=== PATIENT | male | born 1990 | race Caucasian/White ===

== ENCOUNTER 2019-08-20 09:33 | Emergency (ER) | payer SELFPAY ==
[~2019-08-20] VITALS: Ht 180 cm; Wt 57.7 kg
--- NOTE | 2019-08-20 09:57 | ED GI ---
General Chief Complaint: Abdominal/GI Problems Stated Complaint: VOMITING Source of Information: Patient Exam Limitations: No Limitations History of Present Illness Date Seen by Provider: Aug 20, 2019 Time Seen by Provider: 09:55 Initial Comments This is a 29-year-old male presents with persistent vomiting after eating bad food 5 days ago on Wednesday. The patient has had no associated hematemesis, diarrhea, black or tarry stools, dysuria, frequency, flank pain, fever or chill, associated headache stiff neck or photophobia, palpitations, shortness of breath, or productive cough. Patient relates that he uses marijuana but does not believe that this is cyclical vomiting from same. Past medical history is otherwise unremarkable. Allergies and Home Medications Allergies Coded Allergies: No Known Drug Allergies (Unverified , 08/20/19) Patient Home Medication List Home Medication List Reviewed: Yes Review of Systems Review of Systems Constitutional: No chills, No fever EENTM: No Symptoms Reported Respiratory: No Symptoms Reported; Denies Cough Cardiovascular: No Symptoms Reported; Denies Chest Pain Gastrointestinal: See HPI, Abdominal Pain; Denies Diarrhea; Nausea, Vomiting Genitourinary: No Symptoms Reported Musculoskeletal: no symptoms reported (diffuse greatest in the epigastric area after vomiting) Skin: no symptoms reported; No rash Psychiatric/Neurological: No Symptoms Reported Endocrine: No Symptoms Reported Hematologic/Lymphatic: No Symptoms Reported Past Hesxzes-Kvggum-Vognuq Hx Past Med/Social Hx: Reviewed Nursing Past Med/Soc Hx Physical Exam Vital Signs Vital Signs - First Documented 08/20/19 09:44 Temp 36.3 Pulse 82 Resp 16 B/P (MAP) 123/70 (87) Pulse Ox 98 O2 Delivery Room Air Capillary Refill : Height/Weight/BMI Height: '" Weight: lbs. oz. kg; BMI Method: General Appearance: mild distress, thin Neck: full range of motion, supple Respiratory: lungs clear, normal breath sounds Cardiovascular: regular rate, rhythm, no murmur Gastrointestinal: soft, tenderness Extremities: normal range of motion, non-tender, normal inspection Back: normal inspection Neurologic/Psychiatric: no motor/sensory deficits, alert, normal mood/affect, oriented x 3 Skin: normal color, warm/dry; No rash Progress/Results/Core Measures Results/Orders Lab Results Laboratory Tests Test 08/20/19 10:06 08/20/19 11:23 Range/Units White Blood Count 12.5 H 4.3-11.0 10^3/uL Red Blood Count 5.96 H 4.35-5.85 10^6/uL Hemoglobin 17.8 H 13.3-17.7 G/DL Hematocrit 52 40-54 % Mean Corpuscular Volume 87 80-99 FL Mean Corpuscular Hemoglobin 30 25-34 PG Mean Corpuscular Hemoglobin Concent 34 32-36 G/DL Red Cell Distribution Width 12.6 10.0-14.5 % Platelet Count 340 130-400 10^3/uL Mean Platelet Volume 9.9 7.4-10.4 FL Neutrophils (%) (Auto) 76 H 42-75 % Lymphocytes (%) (Auto) 13 12-44 % Monocytes (%) (Auto) 10 0-12 % Eosinophils (%) (Auto) 0 0-10 % Basophils (%) (Auto) 0 0-10 % Neutrophils # (Auto) 9.5 H 1.8-7.8 X 10^3 Lymphocytes # (Auto) 1.7 1.0-4.0 X 10^3 Monocytes # (Auto) 1.2 H 0.0-1.0 X 10^3 Eosinophils # (Auto) 0.0 0.0-0.3 10^3/uL Basophils # (Auto) 0.0 0.0-0.1 10^3/uL Sodium Level 133 L 135-145 MMOL/L Potassium Level 3.8 3.6-5.0 MMOL/L Chloride Level 88 L 98-107 MMOL/L Carbon Dioxide Level 27 21-32 MMOL/L Anion Gap 18 H 5-14 MMOL/L Blood Urea Nitrogen 21 H 7-18 MG/DL Creatinine 0.91 0.60-1.30 MG/DL Estimat Glomerular Filtration Rate > 60 BUN/Creatinine Ratio 23 Glucose Level 107 H 70-105 MG/DL Calcium Level 9.9 8.5-10.1 MG/DL Corrected Calcium 8.5-10.1 MG/DL Total Bilirubin 0.6 0.1-1.0 MG/DL Aspartate Amino Transf (AST/SGOT) 26 5-34 U/L Alanine Aminotransferase (ALT/SGPT) 15 0-55 U/L Alkaline Phosphatase 87 40-136 U/L Total Protein 8.6 H 6.4-8.2 GM/DL Albumin 4.8 H 3.2-4.5 GM/DL Lipase 35 8-78 U/L My Orders Orders - SABI CORLEY MD Ondansetron Injection (Zofran Injectio (08/20/19 10:00) Ns Iv 1000 Ml (Sodium Chloride 0.9%) (08/20/19 10:00) Cbc With Automated Diff (08/20/19 09:53) Comprehensive Metabolic Panel (08/20/19 09:53) Lipase (08/20/19 09:53) Ua Culture If Indicated (08/20/19 09:53) Ns Iv 1000 Ml (Sodium Chloride 0.9%) (08/20/19 11:15) Medications Given in ED Current Medications Medications Dose Ordered Sig/Cortez Route Start Time Stop Time Status Last Admin Dose Admin Ondansetron HCl 4 mg ONCE ONCE IVP 08/20/19 10:00 08/20/19 10:01 DC 08/20/19 10:00 4 MG Vital Signs/I&O 08/20/19 09:44 Temp 36.3 Pulse 82 Resp 16 B/P (MAP) 123/70 (87) Pulse Ox 98 O2 Delivery Room Air Progress Progress Note : Time: 11:28 Progress Note Patient received 2 L normal saline and 4 mg of ondansetron IV. Patient's nausea abated. Discussed findings with patient and encouraged him to use Zofran which I prescribed at home for further nausea. I recommended clear liquids today. I recommended follow-up with his caregiver tomorrow for further evaluation. Departure Impression Primary Impression: Vomiting Qualified Codes: R11.2 - Nausea with vomiting, unspecified Disposition: HOME, SELF-CARE Condition: Improved Departure-Patient Inst. Decision time for Depature: 11:31 Ref[place]: [facility] [place]ructions: Nausea and Vomiting, Adult Add. Discharge Instructions: Zofran for nausea. Clear liquids today. Follow-up with health tomorrow. Return if any problems. All discharge instructions reviewed with patient and/or family. Voiced understanding. Scripts Ondansetron (Ondansetron Odt) 4 Mg Tab.rapdis 4 MG PO Q4M PRN for NAUSEA/VOMITING, #14 TAB Prov: SABI CORLEY MD 08/20/19 SABI CORLEY MD Aug 20, 2019 09:57
[2019-08-20] MEDS ORDERED: ONDANSETRON 4 MG/2 ML (SDV) Z0FRAN IVP ONE (10:00)
[2019-08-20] MEDS ORDERED: NS IV 1000 ML 1,000 ML IV SCH ×3 (10:00→11:45)
[2019-08-20 10:18] LABS: HEMATOCRIT 52 % (40-54); HEMOGLOBIN 17.8 G/DL (13.3-17.7); MEAN CORPUSCULAR HEMOGLOBIN 30 PG (25-34); MEAN CORPUSCULAR HGB CONC 34 G/DL (32-36); MEAN CORPUSCULAR VOLUME 87 FL (80-99); PLATELET COUNT 340 10^3/uL (130-400); RED CELL DISTRIBUTION WIDTH 12.6 % (10.0-14.5); WHITE BLOOD COUNT 12.5 10^3/uL (4.3-11.0)
[2019-08-20 10:19] LABS: BASOPHILS % (AUTO) 0 % (0-10); EOSINOPHILS % (AUTO) 0 % (0-10); LYMPHOCYTES # (AUTO) 1.7 X 10^3 (1.0-4.0); LYMPHOCYTES % (AUTO) 13 % (12-44); MEAN PLATELET VOLUME 9.9 FL (7.4-10.4); MONOCYTES # (AUTO) 1.2 X 10^3 (0.0-1.0); MONOCYTES % (AUTO) 10 % (0-12); NEUTROPHILS # (AUTO) 9.5 X 10^3 (1.8-7.8); NEUTROPHILS % (AUTO) 76 % (42-75)
[2019-08-20 10:37] LABS: ALANINE AMINOTRANSFERASE 15 U/L (0-55); ALBUMIN 4.8 GM/DL (3.2-4.5); ALKALINE PHOSPHATASE 87 U/L (40-136); BILIRUBIN,TOTAL 0.6 MG/DL (0.1-1.0); BUN/CREATININE RATIO 23; CALCIUM 9.9 MG/DL (8.5-10.1); CARBON DIOXIDE 27 MMOL/L (21-32); CHLORIDE 88 MMOL/L (98-107); CREATININE SERUM 0.91 MG/DL (0.60-1.30); GFR ESTIMATED > 60; GLUCOSE 107 MG/DL (70-105); LIPASE 35 U/L (8-78); POTASSIUM 3.8 MMOL/L (3.6-5.0); SODIUM 133 MMOL/L (135-145); TOTAL PROTEIN 8.6 GM/DL (6.4-8.2)
[2019-08-20] MEDS ORDERED: ONDA4TAB11 PO (11:33)
[2019-08-20 11:35] LABS: BILIRUBIN,URINE NEGATIVE (NEGATIVE); CLARITY,URINE CLEAR; COLOR,URINE YELLOW; GLUCOSE, URINE (UA) NEGATIVE (NEGATIVE); KETONES,URINE 3+ (NEGATIVE); LEUKOCYTE ESTERASE ,URINE NEGATIVE (NEGATIVE); NITRITE,URINE NEGATIVE (NEGATIVE); PH,URINE 6.5 (5-9); PROTEIN,URINE NEGATIVE (NEGATIVE); SQUAMOUS EPITHELIAL CELL,UR 0-2 /HPF; WBC,URINE 0-2 /HPF
[2019-08-20] MEDS ORDERED: diphenhydrAMINE 50 MG/ML INJ (BENADRYL) IVP ONE (11:45)
[2019-08-20] MEDS ORDERED: PROMETHAZINE INJ 25 MG/ML (PHENERGAN) AMP IVP ONE (11:45)
[2019-08-20 12:58] VITALS: BP 106/67
[2019-08-21] MEDS ORDERED: METO-310 PO (13:59)
== END 2019-08-20 12:55 | disposition home or self-care (01) ==
LOC: ER FS 09:36
DX: R11.2 Nausea with vomiting, unspecified (principal)
CPT/HCPCS: 36415; 80053; 81000; 83690; 85025; 96361; 96374; 96375

== ENCOUNTER 2019-08-21 11:42 | Emergency (ER) | payer SELFPAY ==
[~2019-08-21] VITALS: Ht 180.3 cm; Wt 61.0 kg
[~2019-08-21 11:42] MED LIST: ONDA4TAB11 PO
[2019-08-21] MEDS ORDERED: HALOPERIDOL 5 MG/ML (HALDOL) AMP IM ONE (12:30)
--- NOTE | 2019-08-21 13:15 | ED GI ---
General Chief Complaint: Abdominal/GI Problems Stated Complaint: NAUSEA Nursing Triage Note: Pt presents to ED reporting just vomited ENROLLED AGENT after eating a footlong cheese coney. Pt was in ER yesterday for work up N/V since 08/17/19 with some abd pain. Pt continues to report he can hold clear liquids down but not food. Pt states, "I don't need everything I got yesterday but I had to leave work and they are mad at me as I brought my release back to work today." Sepsis Screen: No Definite Risk History of Present Illness Date Seen by Provider: Aug 21, 2019 Time Seen by Provider: 12:00 Initial Comments The patient is a 29-year-old male who is otherwise healthy but is a daily marijuana user. He states he smokes marijuana about 4 times every day. He presents with concern for nausea with one episode of nonbloody vomiting occurring prior to arrival when he tried to eat a chili dog at work. Symptoms occur in the setting of nausea and vomiting over the last 4 days. Patient states that since he has not been able to hold down food effectively and vomits every time he eats something. He was seen here yesterday for this issue at which time laboratory evaluation was unremarkable and the patient felt better after IV fluid rehydration and antiemetics here in the emergency department. The patient denies associated abdominal pain of any kind. He denies fevers, hematemesis, hematochezia, melena, cough, shortness of breath or chest pain, flank pain, back pain, dysuria or hematuria, changes in bowel habits. When asked about his marijuana use, he reports not having used marijuana since he was seen here yesterday. He appears comfortable and vital signs are appropriate and he is in absolutely no distress with moist membranes upon initial evaluation in the emergency department. Allergies and Home Medications Allergies Coded Allergies: No Known Drug Allergies (Unverified , 08/20/19) Home Medications Ondansetron 4 Mg Tab.rapdis, 4 MG PO Q4M PRN for NAUSEA/VOMITING Prescribed by: SABI CORLEY MD on 08/20/19 2833 Patient Home Medication List Home Medication List Reviewed: Yes Review of Systems Review of Systems Constitutional: see HPI All Other Systems Reviewed Negative Unless Noted: Yes Past Luxgyij-Welwth-Zllobi Hx Past Med/Social Hx: Reviewed Nursing Past Med/Soc Hx Patient Social History Alcohol Use: Denies Use Recreational Drug Use: Yes (last smoked Wednesday08/19/19) Drug of Choice: marijuana Type Used: Cigarettes 2nd Hand Smoke Exposure: Yes Recent Foreign Travel: No Contact w/Someone Who Travel: No Recent Infectious Disease Expo: No Recent Hopitalizations: No Physical Abuse: No Sexual Abuse: No Mistreated: No Fear: No Seasonal Allergies Seasonal Allergies: No Past Medical History Surgeries: No Respiratory: Yes (pneumothorax (left) at 18 yrs old) Cardiac: Yes (SVT) Irregular Heartbeat Neurological: No Genitourinary: No Gastrointestinal: No Musculoskeletal: No Endocrine: No HEENT: No Cancer: No Psychosocial: No Integumentary: No Blood Disorders: No Family Medical History Reviewed Nursing Family Hx Physical Exam Vital Signs Vital Signs - First Documented 08/21/19 11:47 Temp 36.7 Pulse 81 Resp 18 B/P (MAP) 134/81 (98) Pulse Ox 100 O2 Delivery Room Air Capillary Refill : Less Than 3 Seconds Height/Weight/BMI Height: '" Weight: lbs. oz. kg; 18.00 BMI Method: General Appearance: no apparent distress Exam Comments This is a younger male appearing nontoxic and in no acute distress. Head is normocephalic and atraumatic. Neck is supple and nontender. Oropharynx is moist. Lungs are clear to auscultation at all stations. There is a normal S1 and S2 without rubs or gallops and capillary refill is appropriate, less than 2 seconds globally. Abdomen is soft, nontender and nondistended. Skin is warm and dry without cyanosis, clubbing or edema. Psychiatrically, the patient demonstrates appropriate mood and affect and is alert. Progress/Results/Core Measures Results/Orders Lab Results Laboratory Tests Test 08/21/19 12:47 Range/Units White Blood Count 8.0 4.3-11.0 10^3/uL Red Blood Count 4.61 4.35-5.85 10^6/uL Hemoglobin 14.0 # 13.3-17.7 G/DL Hematocrit 41 40-54 % Mean Corpuscular Volume 88 80-99 FL Mean Corpuscular Hemoglobin 30 25-34 PG Mean Corpuscular Hemoglobin Concent 34 32-36 G/DL Red Cell Distribution Width 12.8 10.0-14.5 % Platelet Count 271 130-400 10^3/uL Mean Platelet Volume 10.1 7.4-10.4 FL Neutrophils (%) (Auto) 60 42-75 % Lymphocytes (%) (Auto) 28 12-44 % Monocytes (%) (Auto) 12 0-12 % Eosinophils (%) (Auto) 0 0-10 % Basophils (%) (Auto) 0 0-10 % Neutrophils # (Auto) 4.8 1.8-7.8 X 10^3 Lymphocytes # (Auto) 2.2 1.0-4.0 X 10^3 Monocytes # (Auto) 0.9 0.0-1.0 X 10^3 Eosinophils # (Auto) 0.0 0.0-0.3 10^3/uL Basophils # (Auto) 0.0 0.0-0.1 10^3/uL Sodium Level 138 135-145 MMOL/L Potassium Level 3.9 3.6-5.0 MMOL/L Chloride Level 102 98-107 MMOL/L Carbon Dioxide Level 26 21-32 MMOL/L Anion Gap 10 5-14 MMOL/L Blood Urea Nitrogen 11 7-18 MG/DL Creatinine 0.74 0.60-1.30 MG/DL Estimat Glomerular Filtration Rate > 60 BUN/Creatinine Ratio 15 Glucose Level 81 70-105 MG/DL Calcium Level 8.8 8.5-10.1 MG/DL Corrected Calcium 8.9 8.5-10.1 MG/DL Total Bilirubin 0.3 0.1-1.0 MG/DL Aspartate Amino Transf (AST/SGOT) 19 5-34 U/L Alanine Aminotransferase (ALT/SGPT) 12 0-55 U/L Alkaline Phosphatase 70 40-136 U/L Total Protein 6.8 6.4-8.2 GM/DL Albumin 3.9 3.2-4.5 GM/DL My Orders Orders - FRANCA LEON MD Cbc With Automated Diff (08/21/19 12:28) Comprehensive Metabolic Panel (08/21/19 12:28) Haloperidol Injection (Haldol Injectio (08/21/19 12:30) Medications Given in ED Current Medications Medications Dose Ordered Sig/Cortez Route Start Time Stop Time Status Last Admin Dose Admin Haloperidol Lactate 2.5 mg ONCE ONCE IM 08/21/19 12:30 08/21/19 12:31 DC 1/13/20 12:41 2.5 MG Vital Signs/I&O 08/21/19 11:47 Temp 36.7 Pulse 81 Resp 18 B/P (MAP) 134/81 (98) Pulse Ox 100 O2 Delivery Room Air Blood Pressure Mean: 98 Progress Progress Note : Time: 13:14 Progress Note Vital signs and clinical examination are reassuring and the patient has actually no abdominal pain on assessment here. Mucous members appear moist. We will recheck basic labs given reported lack of appropriate by mouth intake over the past few days and will try some intramuscular Haldol for relief of nausea and will then reevaluate. If workup is reassuring and the patient is able to tolerate by mouth food here in the emergency department, plan will be for discharge home with additional medication for symptomatically management of nausea and instructions to discontinue abuse of marijuana. Patient understands and agrees with this plan of care. Update 1350: Patient is resting comfortably in no acute distress upon reassessment. He has been able to tolerate by mouth here. Labs unremarkable and reassuring. We'll discharge home with some Reglan in addition to the Zofran he has already been prescribed for nausea. I again counseled him to abstain from marijuana. I am referring him to Dr. Rodríguez of [facility] for close follow-up in the office in the next 2-4 days. He understands that if he feels worse is that of better or develops other new symptoms of concern that he should return to the emergency department immediately for reevaluation. All questions are answered. Departure Impression Primary Impression: Nausea and vomiting Qualified Codes: R11.2 - Nausea with vomiting, unspecified Disposition: 01 HOME, SELF-CARE Condition: Improved Departure-Patient Inst. Referrals: FABY RODRÍGUEZ MD Patient Instructions: Nausea and Vomiting, Adult (DC) Add. Discharge Instructions: I am referring you to Dr. Rodríguez of [facility] for close follow-up in the office. Please call to make an appointment to be seen within the next 2-4 days. Please abstain from marijuana as I feel it is likely contributing to your symptoms. Use the medication as prescribed for nausea. Return to the emergency department for uncontrolled symptoms, worsening of your symptoms or any other new symptoms of concern. Scripts Metoclopramide HCl (Reglan) 10 Mg Tablet 10 MG PO Q8H for Nausea, #12 TAB Prov: FRANCA LEON MD 08/21/19 Work/School Note: Family Work Note Patient Received Medical Care In the Emergency Department On: Aug 21, 2019 Patient Will Be Able to Return to Work/School On: Aug 22, 2019 Patient Restrictions: NONE FRANCA LEON MD Aug 21, 2019 13:15
[2019-08-21 13:19] LABS: BASOPHILS % (AUTO) 0 % (0-10); EOSINOPHILS % (AUTO) 0 % (0-10); HEMATOCRIT 41 % (40-54); LYMPHOCYTES # (AUTO) 2.2 X 10^3 (1.0-4.0); LYMPHOCYTES % (AUTO) 28 % (12-44); MEAN CORPUSCULAR HEMOGLOBIN 30 PG (25-34); MEAN CORPUSCULAR HGB CONC 34 G/DL (32-36); MEAN CORPUSCULAR VOLUME 88 FL (80-99); MEAN PLATELET VOLUME 10.1 FL (7.4-10.4); MONOCYTES # (AUTO) 0.9 X 10^3 (0.0-1.0); MONOCYTES % (AUTO) 12 % (0-12); NEUTROPHILS # (AUTO) 4.8 X 10^3 (1.8-7.8); NEUTROPHILS % (AUTO) 60 % (42-75); PLATELET COUNT 271 10^3/uL (130-400); RED CELL DISTRIBUTION WIDTH 12.8 % (10.0-14.5)
[2019-08-21 13:21] LABS: ALANINE AMINOTRANSFERASE 12 U/L (0-55); ALBUMIN 3.9 GM/DL (3.2-4.5); ALKALINE PHOSPHATASE 70 U/L (40-136); BILIRUBIN,TOTAL 0.3 MG/DL (0.1-1.0); BUN/CREATININE RATIO 15; CALCIUM 8.8 MG/DL (8.5-10.1); CARBON DIOXIDE 26 MMOL/L (21-32); CHLORIDE 102 MMOL/L (98-107); CREATININE SERUM 0.74 MG/DL (0.60-1.30); GFR ESTIMATED > 60; GLUCOSE 81 MG/DL (70-105); POTASSIUM 3.9 MMOL/L (3.6-5.0); SODIUM 138 MMOL/L (135-145); TOTAL PROTEIN 6.8 GM/DL (6.4-8.2)
[2019-08-21] MEDS ORDERED: METO-310 PO (13:59)
[2019-08-21 14:00] VITALS: BP 107/55
== END 2019-08-21 14:02 | disposition home or self-care (01) ==
LOC: EDUNIT# 11:42 → ER FS 11:43
DX: R11.2 Nausea with vomiting, unspecified (principal); Z77.22 Contact with and (suspected) exposure to environmental tobacco smoke (acute) (chronic)
CPT/HCPCS: 36415; 80053; 85025; 96372; 99284

== ENCOUNTER → 2019-11-22 | Outpatient (CLI) | payer OTHER ==
[~2019-11-22] MED LIST changes: +METO-310 PO
--- NOTE | 2019-11-22 11:53 | Diagnostic Imaging Report ---
INDICATION: Blunt trauma, injury. COMPARISON: None available. TECHNIQUE: 3 radiographs of the right hand 5th digit dated 11/22/2019. FINDINGS: Acute mildly comminuted fracturing of the tuft of the 5th digit distal phalanx is present. This is associated with overlying soft tissue injury. A small fracture fragment is slightly anteriorly and laterally displaced though overall alignment is relatively preserved. No additional fracture or dislocation. No destructive osseous process. No suspicious radiopaque foreign body. IMPRESSION: Acute mildly comminuted and mildly displaced fracturing involving the tuft of the 5th digit distal phalanx with associated overlying soft tissue injury. Dictated by: Dictated on workstation # [id number]
== END ==
LOC: RAD FS 11:27
PROVIDERS: ATTEND Family Medicine
DX: S62.636A Displaced fracture of distal phalanx of right little finger, initial encounter for closed fracture (principal); X58.XXXA Exposure to other specified factors, initial encounter
CPT/HCPCS: 73140

== ENCOUNTER 2020-03-05 07:41 | Emergency (ER) | payer SELFPAY ==
[~2020-03-05] VITALS: Ht 180 cm; Wt 60.0 kg
--- OUTSIDE RECORDS SUMMARY | 2020-03-05 08:06 | XMS REPORT | Continuity of Care Document ---
Author Organization Unknown Address Unknown Phone Unavailable Allergies Active Description Code Type Severity Reaction Onset Reported/Identified Relationship to Patient Clinical Status Yes No Known Drug Allergies [id number] Drug Allergy Unknown N/A 08/20/2019 Medications There is no data. Problems Date Dx Coded Attending Type Code Diagnosis Diagnosed By 08/20/2019 BARNEY SAGASTUME, SABI S Ot R11. 2 NAUSEA WITH VOMITING, UNSPECIFIED 08/21/2019 CAROLYN SAGASTUME, FRANCA Isbell Ot R11. 0 NAUSEA 08/21/2019 CAROLYN SAGASTUME, FRANCA Isbell Ot R11. 2 NAUSEA WITH VOMITING, UNSPECIFIED 08/21/2019 CAROLYN SAGASTUME, FRANCA Isbell Ot Z77. 22 CNTCT W AND EXPSR TO ENVIRON TOBACCO SMO 08/24/2019 SABI CORLEY MD Ot R11. 2 NAUSEA WITH VOMITING, UNSPECIFIED 08/24/2019 BARNEY SAGASTUME, SABI Steward Ot R11. 2 NAUSEA WITH VOMITING, UNSPECIFIED 08/25/2019 CAROLYN SAGASTUME, FRANCA Isbell Ot R11. 0 NAUSEA 08/25/2019 CAROLYN SAGASTUME, FRANCA Isbell Ot R11. 2 NAUSEA WITH VOMITING, UNSPECIFIED 08/25/2019 CAROLYN SAGASTUME, FRANCA Isbell Ot Z77. 22 CNTCT W AND EXPSR TO ENVIRON TOBACCO SMO 11/23/2019 COSENS DO, LUCITA L Ot S62.636A DISP FX OF DISTAL PHALANX OF RIGHT LITTL 11/23/2019 COSENS DO, LUCITA L Ot X58.XXXA EXPOSURE TO OTHER SPECIFIED FACTORS, INI 11/29/2019 COSENS DO, LUCITA L Ot S62.636A DISP FX OF DISTAL PHALANX OF RIGHT LITTL 11/29/2019 COSENS DO, LUCITA L Ot X58.XXXA EXPOSURE TO OTHER SPECIFIED FACTORS, INI 12/04/2019 COSENS DO, LUCITA L Ot S62.636A DISP FX OF DISTAL PHALANX OF RIGHT LITTL 12/04/2019 COSENS DO, LUCITA L Ot X58.XXXA EXPOSURE TO OTHER SPECIFIED FACTORS, INI Procedures There is no data. Results Test Result Range Complete blood count (CBC) with automate d white blood cell (WBC) differential - 08/20/19 10:06 Blood leukocytes automated count (number/volume) 12.5 10*3/uL 4.3-11.0 Blood erythrocytes automated count (number/volume) 5.96 10*6/uL 4.35-5.85 Venous blood hemoglobin measurement (mass/volume) 17.8 g/dL 13.3-17.7 Blood hematocrit (volume fraction) 52 % 40-54 Automated erythrocyte mean corpuscular volume 87 [ foz_us] 80-99 Automated erythrocyte mean corpuscular h emoglobin (mass per erythrocyte) 30 pg 25-34 Automated erythrocyte mean corpuscular h emoglobin concentration measurement (mass/volume) 34 g/dL 32-36 Automated erythrocyte distribution width ratio 12. 6 % 10.0- 14.5 Automated blood platelet count (count/volume) 340 10*3/uL 130-400 Automated blood platelet mean volume measurement 9.9 [foz_us] 7.4-10.4 Automated blood neutrophils/100 leukocytes 76 % 42-75 Automated blood lymphocytes/100 leukocytes 13 % 12-44 Blood monocytes/100 leukocytes 10 % 0-12 Automated blood eosinophils/100 leukocytes 0 % 0-10 Automated blood basophils/100 leukocytes 0 % 0-10 Blood neutrophils automated count (number/volume) 9.5 10*3 1.8-7.8 Blood lymphocytes automated count (number/volume) 1.7 10*3 1.0-4.0 Blood monocytes automated count (number/volume) 1. 2 10*3 0.0-1.0 Automated eosinophil count 0.0 10*3/uL 0 .0-0.3 Automated blood basophil count (count/volume) 0.0 10*3/uL 0.0-0.1 Comprehensive metabolic panel - 08/20/19 10:06 Serum or plasma sodium measurement (moles/volume) 133 mmol/L 135-145 Serum or plasma potassium measurement (moles/volume) 3.8 mmol/L 3.6-5.0 Serum or plasma chloride measurement (moles/volume) 88 mmol/L 98-107 Carbon dioxide 27 mmol/L 21-32 Serum or plasma anion gap determination (moles/volume) 18 mmol/L 5-14 Serum or plasma urea nitrogen measurement (mass/volume ) 21 mg/dL 7-18 Serum or plasma creatinine measurement (mass/volume) 0.91 mg/dL 0.60-1.30 Serum or plasma urea nitrogen/creatinine mass ratio 23 NRG Serum or plasma creatinine measurement w ith calculation of estimated glomerular filtration rate > NRG Serum or plasma glucose measurement (mass/volume) 107 mg/dL 70-105 Serum or plasma calcium measurement (mass/volume) 9.9 mg/dL 8.5-10.1 Serum or plasma total bilirubin measurement (mass/volu me) 0.6 mg/dL 0.1-1.0 Serum or plasma alkaline phosphatase martina surement (enzymatic activity/volume) 87 U/L 40-136 Serum or plasma aspartate aminotransfera se measurement (enzymatic activity/volume) 26 U/L 5-34 Serum or plasma alanine aminotransferase measurement (enzymatic activity/volume) 15 U/L 0-55 Serum or plasma protein measurement (mass/volume) 8.6 g/dL 6.4-8.2 Serum or plasma albumin measurement (mass/volume) 4.8 g/dL 3.2-4.5 Lipase - 08/20/19 10:06 Lipase 35 U/L 8-78 Complete urinalysis with reflex to cultu re - 08/20/19 11:23 Urine color determination YELLOW NRG Urine clarity determination CLEAR NR G Urine pH measurement by test strip 6.5 5-9 Specific gravity of urine by test strip 1.015 1.016-1.022 Urine protein assay by test strip, semi-quantitative NEGATIVE NEGATIVE Urine glucose detection by automated test strip NE GATIVE NEGATIVE Erythrocytes detection in urine sediment by light micr oscopy NEGATIVE NEGATIVE Urine ketones detection by automated test strip 3+ NEGATIVE Urine nitrite detection by test strip NEGATIVE NEGATIVE Urine total bilirubin detection by test strip NEGA TIVE NEGATIVE Urine urobilinogen measurement by automated test strip (mass/volume) 0.2 mg/dL < = 1.0 Urine leukocyte esterase detection by dipstick NEG ATIVE NEGATIVE Automated urine sediment erythrocyte cou nt by microscopy (number/high power field) NONE NRG Automated urine sediment leukocyte count by microscopy (number/high power field) [HPF] NRG Bacteria detection in urine sediment by light microsco py NONE NRG Squamous epithelial cells detection in u rine sediment by light microscopy 0-2 NRG Crystals detection in urine sediment by light microsco py NONE NRG Casts detection in urine sediment by light microscopy NONE NRG Mucus detection in urine sediment by light microscopy NEGATIVE NRG Complete urinalysis with reflex to culture NO NRG Complete blood count (CBC) with automate d white blood cell (WBC) differential - 08/21/19 12:47 Blood leukocytes automated count (number/volume) 8.0 10*3/uL 4.3-11.0 Blood erythrocytes automated count (number/volume) 4.61 10*6/uL 4.35-5.85 Venous blood hemoglobin measurement (mass/volume) 14.0 g/dL 13.3-17.7 Blood hematocrit (volume fraction) 41 % 40-54 Automated erythrocyte mean corpuscular volume 88 [ foz_us] 80-99 Automated erythrocyte mean corpuscular h emoglobin (mass per erythrocyte) 30 pg 25-34 Automated erythrocyte mean corpuscular h emoglobin concentration measurement (mass/volume) 34 g/dL 32-36 Automated erythrocyte distribution width ratio 12. 8 % 10.0- 14.5 Automated blood platelet count (count/volume) 271 10*3/uL 130-400 Automated blood platelet mean volume measurement 10.1 [foz_us] 7.4-10.4 Automated blood neutrophils/100 leukocytes 60 % 42-75 Automated blood lymphocytes/100 leukocytes 28 % 12-44 Blood monocytes/100 leukocytes 12 % 0-12 Automated blood eosinophils/100 leukocytes 0 % 0-10 Automated blood basophils/100 leukocytes 0 % 0-10 Blood neutrophils automated count (number/volume) 4.8 10*3 1.8-7.8 Blood lymphocytes automated count (number/volume) 2.2 10*3 1.0-4.0 Blood monocytes automated count (number/volume) 0. 9 10*3 0.0-1.0 Automated eosinophil count 0.0 10*3/uL 0 .0-0.3 Automated blood basophil count (count/volume) 0.0 10*3/uL 0.0-0.1 Comprehensive metabolic panel - 08/21/19 12:47 Serum or plasma sodium measurement (moles/volume) 138 mmol/L 135-145 Serum or plasma potassium measurement (moles/volume) 3.9 mmol/L 3.6-5.0 Serum or plasma chloride measurement (moles/volume) 102 mmol/L 98-107 Carbon dioxide 26 mmol/L 21-32 Serum or plasma anion gap determination (moles/volume) 10 mmol/L 5-14 Serum or plasma urea nitrogen measurement (mass/volume ) 11 mg/dL 7-18 Serum or plasma creatinine measurement (mass/volume) 0.74 mg/dL 0.60-1.30 Serum or plasma urea nitrogen/creatinine mass ratio 15 NRG Serum or plasma creatinine measurement w ith calculation of estimated glomerular filtration rate > NRG Serum or plasma glucose measurement (mass/volume) 81 mg/dL 70-105 Serum or plasma calcium measurement (mass/volume) 8.8 mg/dL 8.5-10.1 Serum or plasma total bilirubin measurement (mass/volu me) 0.3 mg/dL 0.1-1.0 Serum or plasma alkaline phosphatase martina surement (enzymatic activity/volume) 70 U/L 40-136 Serum or plasma aspartate aminotransfera se measurement (enzymatic activity/volume) 19 U/L 5-34 Serum or plasma alanine aminotransferase measurement (enzymatic activity/volume) 12 U/L 0-55 Serum or plasma protein measurement (mass/volume) 6.8 g/dL 6.4-8.2 Serum or plasma albumin measurement (mass/volume) 3.9 g/dL 3.2-4.5 CALCIUM CORRECTED 8.9 mg/dL 8.5-10.1 Encounters ACCT No. Visit Date/Time Discharge Status Pt. Type Provider Facility Loc./Unit Complaint [id number] 11/24/2018 11:00:00 11/24/2018 23:59: 59 CLS Outpatient [facility] [id number] 11/22/2019 11:27:00 23:59:59 CLS Outpatient LUCITA MARCH DO [facility] RAD FS BLUNT TRAUMA TO RIGHT 5 TH FINGER [id number] 08/21/2019 11:43:00 14:02:00 DIS Emergency CAROLYN SAGASTUME, FRANCA Isbell [facility] ER FS NAUSEA [id number] 08/20/2019 09:36:00 12:55:00 DIS Emergency BARNEY SAGASTUME, SABI Steward [facility] ER FS VOMITING
[2020-03-05] MEDS ORDERED: NS IV 1000 ML 1,000 ML IV STA (08:08)
[2020-03-05] MEDS ORDERED: morphine INJ 10 MG/ML 1ML (SYR OR VIAL) IVP STA (08:08)
[2020-03-05 08:10] LABS: BASOPHILS % (AUTO) 0 % (0-10); EOSINOPHILS # (AUTO) 0.1 10^3/uL (0.0-0.3); EOSINOPHILS % (AUTO) 1 % (0-10); HEMATOCRIT 49 % (40-54); HEMOGLOBIN 16.3 G/DL (13.3-17.7); LYMPHOCYTES # (AUTO) 3.1 X 10^3 (1.0-4.0); LYMPHOCYTES % (AUTO) 32 % (12-44); MEAN CORPUSCULAR HEMOGLOBIN 30 PG (25-34); MEAN CORPUSCULAR HGB CONC 34 G/DL (32-36); MEAN CORPUSCULAR VOLUME 91 FL (80-99); MEAN PLATELET VOLUME 9.6 FL (7.4-10.4); MONOCYTES # (AUTO) 0.7 X 10^3 (0.0-1.0); MONOCYTES % (AUTO) 8 % (0-12); NEUTROPHILS # (AUTO) 5.8 X 10^3 (1.8-7.8); NEUTROPHILS % (AUTO) 59 % (42-75); PLATELET COUNT 366 10^3/uL (130-400); RED CELL DISTRIBUTION WIDTH 13.2 % (10.0-14.5); WHITE BLOOD COUNT 9.9 10^3/uL (4.3-11.0)
--- NOTE | 2020-03-05 08:11 | ED Abdominal Pain ---
General Chief Complaint: Abdominal/GI Problems Stated Complaint: NAUSEA; DIARRHEA; LRQ PAIN Nursing Triage Note: PT REPORTS RLQ PAIN X 3 DAYS WITH WORSENING PAIN OVER THE 3 DAYS. HE REPORTS NAUSEA AND DIARRHEA. Sepsis Screen: No Definite Risk Source of Information: Patient, RN/MD Exam Limitations: No Limitations History of Present Illness Date Seen by Provider: Mar 05, 2020 Time Seen by Provider: 07:50 Initial Comments This patient is 29-year-old male that presents to the emergency department for right lower quadrant abdominal pain 3 days this pain has been worsening over the past 3 days also has some nausea and some little bit loose stool but significant amount of pain. Patient denies fever. We'll do medical history significant Timing/Duration: 3-4 Days Severity/Quality: Moderate Location: RLQ Radiation: No Radiation Activities at Onset: None Allergies and Home Medications Allergies Coded Allergies: No Known Drug Allergies (Unverified , 08/20/19) Home Medications Metoclopramide HCl 10 Mg Tablet, 10 MG PO Q8H Prescribed by: FRANCA LEON on 08/21/19 1359 Ondansetron 4 Mg Tab.rapdis, 4 MG PO Q4M PRN for NAUSEA/VOMITING Prescribed by: SABI CORLEY MD on 08/20/19 1133 Patient Home Medication List Home Medication List Reviewed: Yes Review of Systems Review of Systems Constitutional: No no symptoms reported, No see HPI, No chills, No diaphoresis, No dizziness, No fever, No malaise, No weakness, No weight gain, No weight loss, No other EENTM: No No Symptoms Reported, No See HPI, No Blurred Vision, No Double Vision, No Eye Pain, No Eye Tearing, No Ear Drainage, No Ear Pain, No Mouth Artem n, No Mouth Swelling, No Nose Congestion, No Nose Pain, No Throat Pain, No Throat Swelling, No Other Respiratory: Denies No Symptoms Reported, Denies See HPI, Denies Cough, Denies Orthopnea, Denies Shortness of Air, Denies SOA With Exertion, Denies SOA at Rest, Denies Stridor, Denies Wheezing, Denies Other Cardiovascular: Denies No Symptoms Reported, Denies See HPI, Denies Chest Pain, Denies Edema, Denies Irregular Heart Rate, Denies Lightheadedness, Denies Palpit ations, Denies Syncope, Denies Other Gastrointestinal: See HPI, Abdominal Pain, Diarrhea, Nausea Genitourinary: Denies No Symptoms Reported, Denies See HPI, Denies Burning, Denies Discharge, Denies Drainage, Denies Frequency, Denies Flank Pain, Denies Hematuria, Denies Incontinence, Denies Pain, Denies Urgency, Denies Other Musculoskeletal: No no symptoms reported, No see HPI, No back pain, No gout, No joint pain, No joint swelling, No muscle pain, No muscle stiffness, No muscle cramps, No muscle twitching, No muscle weakness, No neck pain, No other Skin: No no symptoms reported, No see HPI, No change in color, No change in hair/nails, No dryness, No hx of skin cancer, No lesions, No lumps, No pruritus, No rash, No other Psychiatric/Neurological: Denies No Symptoms Reported, Denies See HPI, Denies Anxiety, Denies Depressed, Denies Emotional Problems, Denies Headache, Denies Numbness, Denies Paresthesia, Denies Pre-Existing Deficit, Denies Seizure, Denies Tingling, Denies Tremors, Denies Weakness, Denies Other All Other Systems Reviewed Negative Unless Noted: Yes Past Kkoxprq-[id number]-Kmlwmh Hx Patient Social History Alcohol Use: Denies Use Recreational Drug Use: Yes Drug of Choice: marijuana Smoking Status: Current Everyday Smoker Type Used: Cigarettes 2nd Hand Smoke Exposure: No Recent Foreign Travel: No Contact w/Someone Who Travel: No Recent Infectious Disease Expo: No Recent Hopitalizations: No Physical Abuse: No Sexual Abuse: No Mistreated: No Fear: No Seasonal Allergies Seasonal Allergies: No Past Medical History Surgeries: No Respiratory: Yes (pneumothorax (left) at 18 yrs old) Cardiac: Yes (SVT) Irregular Heartbeat Neurological: No Genitourinary: No Gastrointestinal: No Musculoskeletal: No Endocrine: No HEENT: No Cancer: No Psychosocial: No Integumentary: No Blood Disorders: No Physical Exam Vital Signs Vital Signs - First Documented 03/05/20 08:04 Temp 35.8 Pulse 66 Resp 18 B/P (MAP) 106/69 (81) Pulse Ox 100 Capillary Refill : Less Than 3 Seconds Height/Weight/BMI Height: '" Weight: lbs. oz. kg; 18.00 BMI Method: General Appearance: WD/WN, no apparent distress Respiratory: chest non-tender, lungs clear, normal breath sounds, no respiratory distress, no accessory muscle use Cardiovascular: normal peripheral pulses, regular rate, rhythm, no edema, no gallop, no JVD, no murmur Gastrointestinal: normal bowel sounds, soft, no organomegaly, no pulsatile mass, guarding, tenderness Skin: normal color, warm/dry Progress/Results/Core Measures Results/Orders Lab Results Laboratory Tests Test 03/05/20 07:45 03/05/20 08:00 Range/Units Urine Color YELLOW Urine Clarity CLEAR Urine pH 6.0 5-9 Urine Specific Mcgrew 1.020 1.016-1.022 Urine Protein NEGATIVE NEGATIVE Urine Glucose (UA) NEGATIVE NEGATIVE Urine Ketones NEGATIVE NEGATIVE Urine Nitrite NEGATIVE NEGATIVE Urine Bilirubin NEGATIVE NEGATIVE Urine Urobilinogen 0.2 < = 1.0 MG/DL Urine Leukocyte Esterase NEGATIVE NEGATIVE Urine RBC (Auto) NEGATIVE NEGATIVE Urine RBC NONE /HPF Urine WBC NONE /HPF Urine Squamous Epithelial Cells 0-2 /HPF Urine Crystals NONE /LPF Urine Bacteria NONE /HPF Urine Casts NONE /LPF Urine Mucus NEGATIVE /LPF Urine Culture Indicated NO White Blood Count 9.9 4.3-11.0 10^3/uL Red Blood Count 5.35 4.35-5.85 10^6/uL Hemoglobin 16.3 13.3-17.7 G/DL Hematocrit 49 40-54 % Mean Corpuscular Volume 91 80-99 FL Mean Corpuscular Hemoglobin 30 25-34 PG Mean Corpuscular Hemoglobin Concent 34 32-36 G/DL Red Cell Distribution Width 13.2 10.0-14.5 % Platelet Count 366 130-400 10^3/uL Mean Platelet Volume 9.6 7.4-10.4 FL Neutrophils (%) (Auto) 59 42-75 % Lymphocytes (%) (Auto) 32 12-44 % Monocytes (%) (Auto) 8 0-12 % Eosinophils (%) (Auto) 1 0-10 % Basophils (%) (Auto) 0 0-10 % Neutrophils # (Auto) 5.8 1.8-7.8 X 10^3 Lymphocytes # (Auto) 3.1 1.0-4.0 X 10^3 Monocytes # (Auto) 0.7 0.0-1.0 X 10^3 Eosinophils # (Auto) 0.1 0.0-0.3 10^3/uL Basophils # (Auto) 0.0 0.0-0.1 10^3/uL Sodium Level 133 L 135-145 MMOL/L Potassium Level 4.1 3.6-5.0 MMOL/L Chloride Level 95 L 98-107 MMOL/L Carbon Dioxide Level 29 21-32 MMOL/L Anion Gap 9 5-14 MMOL/L Blood Urea Nitrogen 7 7-18 MG/DL Creatinine 0.75 0.60-1.30 MG/DL Estimat Glomerular Filtration Rate > 60 BUN/Creatinine Ratio 9 Glucose Level 88 70-105 MG/DL Calcium Level 10.0 8.5-10.1 MG/DL Corrected Calcium 8.5-10.1 MG/DL Total Bilirubin 0.4 0.1-1.0 MG/DL Aspartate Amino Transf (AST/SGOT) 17 5-34 U/L Alanine Aminotransferase (ALT/SGPT) 10 0-55 U/L Alkaline Phosphatase 83 40-136 U/L Total Protein 8.1 6.4-8.2 GM/DL Albumin 4.6 H 3.2-4.5 GM/DL My Orders Orders - CHRISSY MCLAUGHLIN MD Cbc With Automated Diff (03/05/20 08:00) Comprehensive Metabolic Panel (03/05/20 08:00) Urinalysis (03/05/20 08:00) Ct Abd/Pelv W (Appendicitis) (03/05/20 08:07) Ondansetron Injection (Zofran Injectio (03/05/20 08:15) Ns Iv 1000 Ml (Sodium Chloride 0.9%) (03/05/20 08:08) Morphine Injection (Morphine Injection (03/05/20 08:08) Iohexol Injection (Omnipaque 350 Mg/Ml 1 (03/05/20 08:45) Received Contrast (Hold Metformin- Contr (03/05/20 08:45) Sodium Chloride Flush (Catheter Flush Sy (03/05/20 08:45) Ns (Ivpb) (Sodium Chloride 0.9% Ivpb Bag (03/05/20 08:45) Medications Given in ED Current Medications Medications Dose Ordered Sig/Cortez Route Start Time Stop Time Status Last Admin Dose Admin Iohexol 100 ml ONCE ONCE IV 03/05/20 08:45 03/05/20 08:46 DC 03/05/20 08:43 100 ML Ondansetron HCl 4 mg ONCE ONCE IVP 7/28/20 08:15 03/05/20 08:16 DC 03/05/20 08:15 4 MG Sodium Chloride 10 ml NEEDED PRN IV 03/05/20 08:45 03/05/20 08:43 10 ML Sodium Chloride 100 ml ONCE ONCE IV 03/05/20 08:45 03/05/20 08:46 DC 03/05/20 08:43 80 ML Vital Signs/I&O 03/05/20 03/05/20 08:04 08:15 Temp 35.8 35.8 Pulse 66 Resp 18 B/P (MAP) 106/69 (81) Pulse Ox 100 Blood Pressure Mean: 81 Progress Progress Note : Time: 09:12 Progress Note Negative for any acute findings. Patient is to encourage by mouth fluids take medications as prescribed and follow up with PCP in 2-3 days. May take [id number] Pepto-Bismol to help with diarrhea. Departure Impression Primary Impression: Abdominal pain Additional Impression: Diarrhea Disposition: HOME, SELF-CARE Condition: Stable Departure-Patient Inst. Decision time for Depature: 09:13 Referrals: NO,LOCAL PHYSICIAN (PCP) Primary Care Physician Patient Instructions: Severe Abdominal Pain, Adult (DC) Add. Discharge Instructions: Patient is to encourage by mouth fluids take medications as prescribed and follow up with PCP in 2-3 days. May take [id number] Pepto-Bismol to help with diarrhea. All discharge instructions reviewed with patient and/or family. Voiced understanding. Scripts Dicyclomine HCl (Dicyclomine HCl) 20 Mg Tablet 20 MG PO TID, #30 TAB 0 Refills Prov: CHRISSY MCLAUGHLIN MD 03/05/20 Diclofenac Sodium (Diclofenac Sodium) 75 Mg Tablet. 75 MG PO BID for 10 Days, #20 TAB 0 Refills Prov: CHRISSY MCLAUGHLIN MD 03/05/20 CHRISSY MCLAUGHLIN MD Mar 05, 2020 08:11
[2020-03-05 08:13] LABS: BILIRUBIN,URINE NEGATIVE (NEGATIVE); CLARITY,URINE CLEAR; COLOR,URINE YELLOW; GLUCOSE, URINE (UA) NEGATIVE (NEGATIVE); KETONES,URINE NEGATIVE (NEGATIVE); LEUKOCYTE ESTERASE ,URINE NEGATIVE (NEGATIVE); NITRITE,URINE NEGATIVE (NEGATIVE); PROTEIN,URINE NEGATIVE (NEGATIVE); SQUAMOUS EPITHELIAL CELL,UR 0-2 /HPF
[2020-03-05] MEDS ORDERED: ONDANSETRON 4 MG/2 ML (SDV) Z0FRAN IVP ONE (08:15)
[2020-03-05 08:25] LABS: BILIRUBIN,TOTAL 0.4 MG/DL (0.1-1.0); BUN/CREATININE RATIO 9; CARBON DIOXIDE 29 MMOL/L (21-32); CHLORIDE 95 MMOL/L (98-107); CREATININE SERUM 0.75 MG/DL (0.60-1.30); GFR ESTIMATED > 60; GLUCOSE 88 MG/DL (70-105); POTASSIUM 4.1 MMOL/L (3.6-5.0); SODIUM 133 MMOL/L (135-145)
[2020-03-05 08:26] LABS: ALANINE AMINOTRANSFERASE 10 U/L (0-55); ALBUMIN 4.6 GM/DL (3.2-4.5); ALKALINE PHOSPHATASE 83 U/L (40-136); TOTAL PROTEIN 8.1 GM/DL (6.4-8.2)
[2020-03-05] MEDS ORDERED: IOHEXOL 350 MG/ML 100 ML (OMNIPAQUE 350) VIAL IV ONE (08:45)
[2020-03-05] MEDS ORDERED: NS 100 ML (IVPB) BAG IV ONE (08:45)
[2020-03-05] MEDS ORDERED: CATHETER FLUSH 10 ML SYR IV PRN (08:45)
[2020-03-05] MEDS ORDERED: HOLD METFORMIN - RECEIVED CONTRAST 20 ML VIAL IV SCH (08:45)
--- NOTE | 2020-03-05 09:02 | Diagnostic Imaging Report ---
EXAMINATION: CT Abdomen and Pelvis with intravenous contrast. TECHNIQUE: Multiple contiguous axial images were obtained through the abdomen and pelvis after the uneventful administration of intravenous contrast. All CT scans use one or more of the following dose optimizing techniques: automated exposure control, MA and/or KvP adjustment based on a patient size and exam type, or iterative reconstruction. HISTORY: Abdominal pain. COMPARISON: None available. FINDINGS: Limited views of the lower thorax are unremarkable. The liver is normal without focal lesion. There is no biliary ductal dilation. Gallbladder is normal. Pancreas is normal. Spleen is normal. Adrenal glands are normal. The kidneys are normal. There is no hydronephrosis. Urinary bladder is normal. Visualized bowel is normal in caliber without obstruction or inflammation. The appendix is normal. Focal minimally dilated portion of small bowel is likely related to peristalsis. No free fluid or air. No abdominal or pelvic lymphadenopathy. Aorta is normal in caliber without aneurysm. There is symmetric sclerosis and erosions with irregularity on both sides of the sacroiliac joints, consistent with sacroiliitis. There is ankylosis of T12/L1. 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 The differential is led by ankylosing spondylitis and inflammatory bowel disease. No active bowel inflammation is seen by CT and the appendix is normal. Dictated by: Dictated on workstation # [id number]
[2020-03-05] MEDS ORDERED: DICY20TA10 PO (09:15)
[2020-03-05] MEDS ORDERED: DICL75TA2 PO (09:15)
[2020-03-05 09:19] VITALS: BP 106/69
== END 2020-03-05 09:18 | disposition home or self-care (01) ==
LOC: EDUNIT# 07:41 → ER FS 07:44
DX: R19.7 Diarrhea, unspecified (principal); F17.210 Nicotine dependence, cigarettes, uncomplicated
CPT/HCPCS: 36415; 74177; 80053; 81000; 85025

== ENCOUNTER → 2020-08-28 | Outpatient (CLI) | payer OTHER ==
[~2020-08-28] MED LIST changes: +DICL75TA2 PO; +DICY20TA10 PO
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
== END ==
LOC: RAD FS 11:01
PROVIDERS: ATTEND Family Medicine
DX: S60.052A Contusion of left little finger without damage to nail, initial encounter (principal)
CPT/HCPCS: 73140